=== PATIENT | female | born 1940 | race Caucasian/White ===

== ENCOUNTER 2020-11-05 09:59 | Inpatient (IN) ==
--- NOTE | 2020-10-17 12:48 | PAT Medication Instructions ---
Medication Instructions Date of Service October 17, 2020 Home Medications calcium carbonate-vitamin D3 600 mg (1,500 mg)-400 unit capsule (Calcium 600 with Vitamin D3) 1 cap PO BID carteolol 1 % eye drops 1 drops OPHTHALMIC (EYE) Q12H levothyroxine 50 mcg capsule 50 mcg PO QAM losartan 50 mg tablet 50 mg PO QAM prednisolone acetate 1 % eye drops,suspension 1 drops OP DAILY turmeric root extract 500 mg capsule 1,000 mg PO QAM acetaminophen 650 mg tablet,extended release 1,300 mg PO Q12H amlodipine 2.5 mg tablet 2.5 mg PO QAM carvedilol 6.25 mg tablet 6.25 mg PO BID triamcinolone acetonide 0.025 % topical ointment 1 applic TOPICAL DAILY STOP taking 2 weeks before surgery (or as soon as possible if surgery is within 2 weeks) turmeric root extract 500 mg capsule 1,000 mg PO QAM STOP taking 24 hours before surgery triamcinolone acetonide 0.025 % topical ointment 1 applic TOPICAL DAILY DO NOT take the morning of surgery calcium carbonate-vitamin D3 600 mg (1,500 mg)-400 unit capsule (Calcium 600 with Vitamin D3) 1 cap PO BID losartan 50 mg tablet 50 mg PO QAM Take morning of surgery With a small sip of water, OTHERWISE NOTHING TO EAT OR DRINK AFTER MIDNIGHT: carteolol 1 % eye drops 1 drops OPHTHALMIC (EYE) Q12H levothyroxine 50 mcg capsule 50 mcg PO QAM prednisolone acetate 1 % eye drops,suspension 1 drops OP DAILY acetaminophen 650 mg tablet,extended release 1,300 mg PO Q12H (okay to take up to 4 hours prior to surgery if needed) amlodipine 2.5 mg tablet 2.5 mg PO QAM carvedilol 6.25 mg tablet 6.25 mg PO BID Take evening before surgery calcium carbonate-vitamin D3 600 mg (1,500 mg)-400 unit capsule (Calcium 600 with Vitamin D3) 1 cap PO BID carteolol 1 % eye drops 1 drops OPHTHALMIC (EYE) Q12H acetaminophen 650 mg tablet,extended release 1,300 mg PO Q12H carvedilol 6.25 mg tablet 6.25 mg PO BID Other Notes If you have any questions please call us at [phone] or [phone] or [phone] or [phone]
--- NOTE | 2020-10-22 11:22 | Anesthesiology Consultation ---
Date of Service October 22, 2020 Assessment & Plan (1) Encounter for pre-operative examination: COVID screening: Per assessment on 10/22: Travel screen negative, no known COVID- 19 positive contacts or current COVID-19 related symptoms. Patient vaccinated. Surgeon arranging preop COVID testing. Awaiting results. Chart Review Chart Review: Acceptable Risk for Surgery and Patient seen in Pre Admission Testing Teaching & Discussion Pre-Anesthesia Teaching/Discussion Notes: Instructed NPO after midnight before surgery,except medications with 15 cc of water. Medication instructions provided according to the PAT guidelines. History Surgery Operation Date: 11/05/20 10:05 Proposed Procedures p L4-L5 Decompression Fusion, Spinal Cord Monitoring - Tonny Marquis DO Height/Weight Height: 4 ft 11 in Weight: 55.4 kg Allergies Allergy/AdvReac Type Severity Reaction Status Date / Time acetaminophen [From Vicodin] AdvReac Headache Verified 10/15/20 09:04 hydrocodone [From Vicodin] AdvReac Headache Verified 10/15/20 09:04 naproxen [From Naprelan] AdvReac Abdominal Verified 10/15/20 09:04 Pain prednisolone AdvReac Dizziness, Verified 10/19/20 16:18 itching raloxifene [From Evista] AdvReac Muscle Verified 10/19/20 16:18 cramping Medications Home Medications Medication Instructions Recorded Confirmed Last Taken calcium carbonate-vitamin D3 600 1 cap PO BID cap 01/26/18 10/15/20 Unknown mg (1,500 mg)-400 unit capsule (Calcium 600 with Vitamin D3) carteolol 1 % eye drops 1 drops OPHTHALMIC (EYE) Q12H 01/26/18 10/15/20 Unknown levothyroxine 50 mcg capsule 50 mcg PO QAM 01/26/18 10/15/20 Unknown losartan 50 mg tablet 50 mg PO QAM 01/26/18 10/15/20 Unknown prednisolone acetate 1 % eye 1 drops OP DAILY ml 01/26/18 10/15/20 Unknown drops,suspension turmeric root extract 500 mg 1,000 mg PO QAM 01/26/18 10/15/20 Unknown capsule acetaminophen 650 mg 1,300 mg PO Q12H 10/15/20 10/15/20 Unknown tablet,extended release amlodipine 2.5 mg tablet 2.5 mg PO QAM 10/15/20 10/15/20 Unknown carvedilol 6.25 mg tablet 6.25 mg PO BID 10/15/20 10/15/20 Unknown triamcinolone acetonide 0.025 % 1 applic TOPICAL DAILY 10/15/20 10/15/20 Unknown topical ointment Past Medical History Medical History Chronic neck pain Glaucoma Hearing deficit B/L REYES History of COVID-19 Dx 01/2020 > fatigue, headache > resolved HTN (hypertension), benign Hypothyroid Osteoarthritis Osteopenia Spinal stenosis Exercise / Class Metabolic Activity II 4-5 Yardwork/Stairs/Walk up hill (one FS (no CP, no SOB)) Past Family History Family History Father HTN (hypertension), benign Mother Bladder cancer Past Surgical History Surgical History H/O hemorrhoidectomy History of appendectomy History of bunionectomy History of colonoscopy History of esophagogastroduodenoscopy (EGD) Post corneal transplant R/L Past Anesthesia History No Hx of Anesthesia Complications and No Family Hx of Anesthesia Complications History of PONV No Hx of PONV and Hx of Motion Sickness (situational (car)) Social History Smoking Status: Never smoker Do You Dip or Chew Tobacco: No Hx Alcohol Use: Yes Alcohol type: wine alcohol intake frequency: holidays/special occasions only Hx Substance Use: No substance use type: does not use Review of Systems Patient denies chest pain, shortness of breath, dyspnea on exertion, fever, chills, cough, wheezing, palpitations. Physical Exam Vital Signs VITALS BP 162/71 (pt anxious, systolic BP typically in the 120s per pt) P 64 TEMP WNL SP02 100%RA RESP 16 PHYSICAL Full cervical extension range of motion (chronic neck issues, occasional pain). Full TMJ range of motion. TMD 3 finger breaths Mallampati Score 3 Dentition: several missing teeth, implant post (right lower, left upper molars)- plan for implant after surgery Lungs: clear throughout to auscultation Cardiac: regular rate and rhythm, no murmurs noted Spine: normal Carotid arteries: negative bruit Extremities: no edema Lab Results Anesthesia Preop Results Results Anesthesia Widget: WBC 4.30 K/uL (4.8-10.8) L 10/22/20 Hgb 12.8 g/dL (12.0-16.0) 10/22/20 Hct 38.5 % (37-47) 10/22/20 Plt 185 K/uL (130-400) 10/22/20 Na 138 mmol/L (136-145) 10/22/20 K 4.1 mmol/L (3.5-5.1) 10/22/20 Cl 105 mmol/L (98-107) 10/22/20 CO2 28 mmol/L (21-32) 10/22/20 BUN 19 mg/dl (7-18) H 10/22/20 Creat 0.60 mg/dl (0.6-1.2) 10/22/20 Glucose Level 80 mg/dl (70-99) 10/22/20 PT 9.9 Seconds (9.0-12.0) 10/22/20 PTT 24.8 Seconds (21.0-31.0) 10/22/20 INR 1.0 (0.9-1.1) 10/22/20 Urine Color Yellow 10/22/20 Urine Appearance Clear (Clear) 10/22/20 Urine pH 7.0 (4.5-7.5) 10/22/20 Urine Specific [place] 1.006 (1.000-1.030) 10/22/20 Urine Protein Negative (Negative) 10/22/20 Urine Glucose (UA) Negative (Negative) 10/22/20 Urine Ketones Negative (Negative) 10/22/20 Urine Blood Negative (Negative) 10/22/20 Urine Nitrite Negative (Negative) 10/22/20 Urine Bilirubin Negative (Negative) 10/22/20 Urine Urobilinogen Negative (Negative) 10/22/20 Urine Leukocyte Esterase Negative (Negative) 10/22/20 Blood Type O Positive 10/22/20 Antibody Screen NEGATIVE 10/22/20 Testing Electrocardiogram Date: 10/22/20 SR with first degree AVB at 61bpm. Otherwise normal ECG. Chest X-Ray Date: 10/22/20 No acute process. Old mild superior endplate compression deformity at T12.
[~2020-11-05 09:59] MED LIST: ACETAMINOPHEN 500 MG TAB PO SCH; CeleBREX 200 MG CAP PO SCH; GABAPENTIN 300 MG CAP PO SCH; LR 15ML/HR IV SCH; ceFAZolin 1000MG 1,000 MG/7.5 ML SYR IV SCH
[2020-11-05] MEDS ORDERED: SODIUM CHLORIDE 0.9% INJ 10 ML VIAL ONE ×2 (10:10)
[2020-11-05] MEDS ORDERED: ATROPINE SULFATE 0.1 MG/ML 10ML SYR IV PRN (10:42)
[2020-11-05] MEDS ORDERED: PHENYLEPHRINE 100MCG/ML 5ML SYR IV PRN (10:42)
[2020-11-05] MEDS ORDERED: fentaNYL citrate 100 MCG/2 ML VIAL IV PRN (10:42)
[2020-11-05] MEDS ORDERED: ONDANSETRON INJ 2 MG/ML 2 ML VIAL IV PRN ×2 (10:42→15:14)
[2020-11-05] MEDS ORDERED: ePHEDrine sulfate 50 MG/ML AMP IV PRN (10:42)
[2020-11-05] MEDS ORDERED: MEPERIDINE HCL 25 MG/ML CARP/VIAL IV PRN (10:42)
[2020-11-05] MEDS ORDERED: DEXAMETHASONE SOD INJ 4 MG/ML VIAL ONE (11:42)
[2020-11-05] MEDS ORDERED: NEOSTIGMINE METHYLSULFATE 1 MG/ML 10ML VIAL ONE ×2 (11:42→13:57)
[2020-11-05] MEDS ORDERED: PROPOFOL IV EMULSION 10 MG/ML 20 ML VIAL IV ONE (11:42)
[2020-11-05] MEDS ORDERED: ONDANSETRON INJ 2 MG/ML 2 ML VIAL ONE ×2 (11:42→13:58)
[2020-11-05] MEDS ORDERED: LIDOCAINE 2% 2 ML VIAL/AMP(20MG/ML) INFIL ONE (11:42)
[2020-11-05] MEDS ORDERED: GLYCOPYRROLATE 0.2 MG/ML VIAL ONE (11:42)
[2020-11-05] MEDS ORDERED: fentaNYL citrate 100 MCG/2 ML VIAL ONE (11:42)
[2020-11-05] MEDS ORDERED: ROCURONIUM BROMIDE 10 MG/ML 5 ML VIAL IV ONE (11:43)
--- NOTE | 2020-11-05 11:59 | History & Physical Bridge Note ---
Date of Service November 05, 2020 History & Physical Bridge Note I have examined the patient, reviewed the History & Physical and in the interval since the performance of the History & Physical I have noted the following changes of clinical significance: no changes noted
--- NOTE | 2020-11-05 12:00 | History & Physical Report ---
Date of Service November 05, 2020 Assessment & Plan (1) Neurogenic claudication due to lumbar spinal stenosis: Plan: L4-L5 decompression fusion History of Present Illness Chief Complaint: Back and leg pain Primary Care Provider: Nick Sharma DO This is an 80-year-old female who presents with chronic persistent back and leg pain. After failing course of nonoperative care she is here for surgical invention. Allergies Allergy/AdvReac Type Severity Reaction Status Date / Time hydrocodone [From Vicodin] AdvReac Headache Verified 11/05/20 10:25 naproxen [From Naprelan] AdvReac Abdominal Verified 11/05/20 10:25 Pain prednisolone AdvReac Dizziness, Verified 11/05/20 10:25 itching raloxifene [From Evista] AdvReac Muscle Verified 11/05/20 10:25 cramping Home Medications Medication Instructions Recorded Confirmed Type calcium carbonate-vitamin D3 600 1 cap PO BID cap 01/26/18 11/05/20 History mg (1,500 mg)-400 unit capsule (Calcium 600 with Vitamin D3) carteolol 1 % eye drops 1 drops OPHTHALMIC (EYE) Q12H 01/26/18 11/05/20 History levothyroxine 50 mcg capsule 50 mcg PO QAM 01/26/18 11/05/20 History losartan 50 mg tablet 50 mg PO QAM 01/26/18 11/05/20 History prednisolone acetate 1 % eye 1 drops OP DAILY ml 01/26/18 11/05/20 History drops,suspension turmeric root extract 500 mg 1,000 mg PO QAM 01/26/18 11/05/20 History capsule acetaminophen 650 mg 1,300 mg PO Q12H 10/15/20 11/05/20 History tablet,extended release amlodipine 2.5 mg tablet 2.5 mg PO QAM 10/15/20 11/05/20 History carvedilol 6.25 mg tablet 6.25 mg PO BID 10/15/20 11/05/20 History triamcinolone acetonide 0.025 % 1 applic TOPICAL DAILY 10/15/20 11/05/20 History topical ointment Past Med/Surg History Medical History (Updated 11/05/20 @ 12:00 by Tonny Marquis DO) Chronic neck pain Glaucoma Hearing deficit B/L REYES History of COVID-19 Dx 01/2020 > fatigue, headache > resolved Hypertension Hypothyroid Osteoarthritis Osteopenia Spinal stenosis Surgical History H/O hemorrhoidectomy History of appendectomy History of bunionectomy History of colonoscopy History of esophagogastroduodenoscopy (EGD) Post corneal transplant R/L Family History Father HTN (hypertension), benign Mother Bladder cancer Social History Smoking Status: Never smoker Second Hand Exposure: No; Do You Dip or Chew Tobacco: No; Hx Alcohol Use: No Hx Substance Use: No Preferred Language: Belarusian Communication Ability: Effective Visual Impairment: No Limitations Hearing Ability: Normal Swimming Pool Salesperson Required: No Beliefs That Will Affect Care: None marital status: Current Living Situation: Alone Feels Safe at Home: Yes Safety Concerns: Feels Safe At This Time Assistive Devices: Glasses, Hearing Aid - Left and Hearing Aid - Right Physical Exam Physical Exam: Patient is alert and oriented Heart regular in rhythm Lungs clear to auscultation Results & Data ([facility]) Vital Signs (Past 12 Hours) Vital Signs Temp Pulse Resp BP Pulse Ox 11/05/20 10:57 36.8 C 65 18 183/95 H 100
[2020-11-05] MEDS ORDERED: BUPIVACAINE 0.5 % 5 MG/1 ML MPF 30ML VIAL ONE (12:15)
[2020-11-05] MEDS ORDERED: EPINEPHrine INJ 1 MG/ML AMP ONE (12:15)
[2020-11-05] MEDS ORDERED: FLOSEAL HEMOSTATIC MATRIX 10ML TOP ONE (13:17)
[2020-11-05] MEDS ORDERED: PHENYLEPHRINE HCL 10 MG/ML VIAL ONE (13:19)
[2020-11-05] MEDS ORDERED: ePHEDrine sulfate 50 MG/ML AMP ONE (13:19)
[2020-11-05] MEDS ORDERED: SUGAMMADEX SODIUM 200 MG/2 ML VIAL IV ONE (13:57)
--- NOTE | 2020-11-05 14:05 | Operative Report ---
Post Operative Report Pre & Post Diagnosis Operation Date: 11/05/20 12:05 Pre-Op Diagnosis: Spondylolisthesis, [place] Post-Op Diagnosis: Spondylolisthesis, [place] I identified the patient and participated in the time-out.: Yes Procedure Operation Date: 11/05/20 12:05 Actual Procedures #1 lumbar decompression with bilateral medial facetectomies and foraminotomies L3-L4 L4-5. #2 posterior spinal fusion L4-5. #3 placement posterior instrumentation L4-5 #4 interbody fusion L4-5. #5 placement peek cage 9 x 22 mm at L4-5. #6 placement locally harvested morselized autograft in the posterior gutters. #7 placement for starting sponge and master graft posterior gutters and I factor interbody space. Surgeon Tonny Marquis, Die Keeper Leonor Santiago Estimated Blood Loss 100 Findings Consistent with Post-Op Diagnosis Specimens None Indications This is an 80-year-old female the presents with above-mentioned diagnosis after failed extensive course of nonoperative care is here for surgical invention. Description of Procedure Patient was met with identified informed consent obtained. Patient was then taken to the operative suite underwent a patient placed in a prone position injectable top Nikita frame. All bony prominences well-padded eyes inspected to ensure no external pressure placed upon them. At this point the lumbar spine was prepped and draped in a sterile fashion. Sharp dissection with the assistance pericardial form down to and exposing the lamina and transverse processes of L4-L5. From caudal to cephalad fashion complete laminectomy L4 partial laminectomy of L3 was performed including bilateral medial facetectomies and foraminotomies addressing severe spinal stenosis. Pedicle screws were then placed in L4-5 bilateral with assistance of fluoroscopy the proper sized pushpa placed. By way the transforaminal portion left complete discectomy of L4-L5 was performed endplates curetted to subcortically bone and a 9 x 22 mm peek cage filled with I factor tapped in position. Rods and locked in place bilaterally. The transverse processes of L4-L5 burred to subcortical bleeding bone. Infuse collagen sponge master graft local autograft was placed in the posterior gutters. 15 round JUDY drain inserted. The incision was then closed with 1 Vicryl fascia 2-0 Vicryl subcutaneously and 4 Monocryl for final skin closure. Steri-Strip sterile dressings placed. Patient will continue PACU stable condition. Please note spinal cord monitoring was utilized at the procedure no changes noted. Lastly Leonor Santiago was present at the entire surgery and while the patient positioning complex portions of the surgery and final skin closure. I attest to the content of the Intraoperative Record and any orders documented therein. Any exceptions are noted below.
[2020-11-05] MEDS: LABETALOL HCL IV 5 MG/ML 20ML IV PRN ×2 (14:20→14:35)
--- NOTE | 2020-11-05 14:36 | Fluoroscopy Report ---
INTRAOPERATIVE RADIOGRAPHS CLINICAL HISTORY: L4-L5 spinal fusion. Fluoroscopy time: 13 seconds. FINDINGS: 2 spot fluoroscopic views of the lumbar spine are presented. There has been discectomy at L 4-L5 with laminectomy and posterior fusion at this level. Interpedicular screws are in place. The ort hopedic hardware appears intact. IMPRESSION: Intraoperative images from lumbar spinal fusion surgery as above. Electronically signed by: Ed Clemons M.D. 11/05/2020 2:35 PM
[2020-11-05] MEDS ORDERED: hydrOXYzine HCl 25 MG TAB PO PRN (15:14)
[2020-11-05] MEDS ORDERED: METOCLOPRAMIDE HCL INJ 5 MG/ML 2 ML VIAL IV PRN (15:14)
[2020-11-05] MEDS ORDERED: bisacodyL 10 MG SUPP PR PRN (15:14)
[2020-11-05] MEDS ORDERED: FAMOTIDINE 20 MG TAB PO PRN (15:14)
[2020-11-05] MEDS ORDERED: DO NOT ADMINISTER FLU VACCINE PRN (15:14)
[2020-11-05] MEDS ORDERED: LORazepam 0.5 MG/1 ML VIAL IV PRN (15:14)
[2020-11-05] MEDS ORDERED: HYDROmorphone INJ 0.5 MG/0.5 ML SYR IV PRN (15:14)
[2020-11-05] MEDS ORDERED: MAGNESIUM HYDROXIDE SUSP 30 ML UDC PO PRN (15:14)
[2020-11-05] MEDS ORDERED: LORazepam 0.5 MG TAB PO PRN (15:14)
[2020-11-05] MEDS ORDERED: DO NOT ADMINISTER PNEUMOCOCCAL VACCINE PRN (15:14)
[2020-11-05] MEDS ORDERED: NALOXONE HCL 0.4 MG/1 ML VIAL/CARP IV PRN (15:14)
[2020-11-05] MEDS ORDERED: oxyCODONE HCL IR 5 MG TAB (IMMEDIATE RELEASE) PO PRN (15:14)
[2020-11-05] MEDS ORDERED: ALUMINUM/MAGNESIUM SUSP 30 ML UDC PO PRN (15:14)
[2020-11-05] MEDS ORDERED: diphenhydrAMINE Capsule 25 MG CAP PO PRN (15:14)
[2020-11-05] MEDS ORDERED: SOD PHOSPHATE/SOD BIPHOSPHATE ENEMA 132 ML BTL PR PRN (15:14)
[2020-11-05] MEDS ORDERED: ACETAMINOPHEN 1,000 MG/100 ML VIAL IV PRN (15:14)
[2020-11-05] MEDS ORDERED: HYDROmorphone INJ 1 MG/ML SYRINGE IV PRN (15:14)
[2020-11-05] MEDS ORDERED: ONDANSETRON 4 MG OD TAB PO PRN (15:14)
[2020-11-05] MEDS ORDERED: PROMETHAZINE HCL 12.5 MG in SODIUM CHLORIDE 0.9% 50 ML IV PRN (15:14)
--- NOTE | 2020-11-05 15:22 | Anesthesiology Progress Note ---
Date of Service November 05, 2020 Anesthesia Post Procedure Vital Signs Vital Signs: Temp Pulse Pulse Resp BP Pulse Ox 11/05/20 14:55 61 14 162/69 H 94 11/05/20 14:40 36.8 C 61 13 155/73 H 96 11/05/20 14:30 60 12 160/71 H 99 11/05/20 14:20 70 13 178/77 H 99 11/05/20 14:14 36.9 C 70 12 183/73 H 99 11/05/20 10:57 36.8 C 65 18 183/95 H 100 Pain Intensity Back: Pain Intensity: 1 Transfer of Care Handoff Completed per policy Notes Mental Status: alert / awake / arousable Patient Amnestic to Procedure: Yes Nausea / Vomiting: adequately controlled Pain: adequately controlled Airway Patency, RR, SpO2: stable & adequate BP & HR: stable & adequate Hydration State: stable & adequate Anesthetic Complications: no major complications apparent and Pt Satisfied with anesthetic care Notes: The patient was awake and comfortable.
--- NOTE | 2020-11-05 16:31 | Hospitalist Consultation ---
Date of Consultation November 05, 2020 Assessment & Plan (1) Neurogenic claudication due to lumbar spinal stenosis: Patient underwent L4-[address] Marquis in November 05 (2) Hypertension: Patient typically taking amlodipine 2.5 Coreg 6.25 twice daily losartan 50-day and Dyazide daily. All are fairly low doses of these medications.. We will hold diuretic dose at this time in the perioperative period following her blood pressure carefully (3) Hypothyroid: We have not tested her thyroid profile in our system. We will continue her Synthroid at 50 mcg a day checking a TSH in the morning (4) Glaucoma: Will remain on her prednisolone and carteolol eyedrops History of Present Illness Attending Physician: Tonny Marquis, History of Present Illness 80-year-old female with neurogenic claudication undergoing L4-5 decompression fusion on November [address] Jaylen Marquis Medical consultation for difficult to manage hypertension patient is typically on 4 antihypertensive medications. She also suffers hypothyroidism typically taking Synthroid as well as having a glaucoma/corneal transplant on prednisolone and carteolol eyedrops. Patient is seen postoperatively in the presence of her family without any problems or concerns Allergies Allergy/AdvReac Type Severity Reaction Status Date / Time hydrocodone [From Vicodin] AdvReac Headache Verified 11/05/20 10:25 naproxen [From Naprelan] AdvReac Abdominal Verified 11/05/20 10:25 Pain prednisolone AdvReac Dizziness, Verified 11/05/20 10:25 itching raloxifene [From Evista] AdvReac Muscle Verified 11/05/20 10:25 cramping Home Medications Medication Instructions Recorded Confirmed Type calcium carbonate-vitamin D3 600 1 cap PO BID cap 01/26/18 11/05/20 History mg (1,500 mg)-400 unit capsule (Calcium 600 with Vitamin D3) carteolol 1 % eye drops 1 drops OPHTHALMIC (EYE) Q12H 01/26/18 11/05/20 History levothyroxine 50 mcg capsule 50 mcg PO QAM 01/26/18 11/05/20 History losartan 50 mg tablet 50 mg PO QAM 01/26/18 11/05/20 History prednisolone acetate 1 % eye 1 drops OP DAILY ml 01/26/18 11/05/20 History drops,suspension turmeric root extract 500 mg 1,000 mg PO QAM 01/26/18 11/05/20 History capsule acetaminophen 650 mg 1,300 mg PO Q12H 10/15/20 11/05/20 History tablet,extended release amlodipine 2.5 mg tablet 2.5 mg PO QAM 10/15/20 11/05/20 History carvedilol 6.25 mg tablet 6.25 mg PO BID 10/15/20 11/05/20 History triamcinolone acetonide 0.025 % 1 applic TOPICAL DAILY 10/15/20 11/05/20 History topical ointment Patient History Medical History (Updated 11/05/20 @ 12:00 by Tonny Marquis DO) Chronic neck pain Glaucoma Hearing deficit B/L REYES History of COVID-19 Dx 01/2020 > fatigue, headache > resolved Hypertension Hypothyroid Osteoarthritis Osteopenia Spinal stenosis Surgical History H/O hemorrhoidectomy History of appendectomy History of bunionectomy History of colonoscopy History of esophagogastroduodenoscopy (EGD) Post corneal transplant R/L Family History Father HTN (hypertension), benign Mother Bladder cancer Social History Smoking Status: Never smoker Second Hand Exposure: No; Do You Dip or Chew Tobacco: No; Hx Alcohol Use: No Hx Substance Use: No Preferred Language: Kinyarwanda Communication Ability: Effective Visual Impairment: No Limitations Hearing Ability: Normal Therapy Manager Required: No Beliefs That Will Affect Care: None marital status: Current Living Situation: Alone Feels Safe at Home: Yes Safety Concerns: Feels Safe At This Time Assistive Devices: None Review of Systems Review of Systems: Mild distress and fatigue no headache, no visual changes no speech or swallowing issues no chest pain, pressure or palpitations no shortness of breath, cough or wheezes no abdominal pain, nausea or vomiting, diarrhea or constipation no dysuria, hematuria or frequency no focal joint pain or swelling no back pain, CVA tenderness or radicular pain no bruising, bleeding or rashes no focal signs of weakness or numbness or altered sensation no complaints of anxiety or depression.. Physical Exam Physical Exam: The patient appeared well nourished and normally developed. Vital signs as documented. Head exam is normocephalic atraumatic Neck is without JVD, thyromegaly, or carotid bruits. Lungs are clear to auscultation, no focal loss of breath sounds Cardiac exam, Rhythm is regular.. No murmurs, rubs or gallops. Abdominal exam reveals normal bowel sounds, soft non tender, no masses Extremities are nonedematous and both pedal pulses are present Neurologic exam is alert and oriented, no focal loss of strength or sensation in particular she has good distal sensation to her left lower leg Skin is without bruises or rashes Psychologically is without concerns for anxiety or depression Results & Data Results & Data ([facility]) Vital Signs (Past 12 Hours) Vital Signs Temp Pulse Pulse Resp BP Pulse Ox 11/05/20 16:03 64 16 164/70 H 97 11/05/20 15:32 62 16 170/71 H 98 11/05/20 14:55 61 14 162/69 H 94 11/05/20 14:40 98.2 F 61 13 155/73 H 96 11/05/20 14:30 60 12 160/71 H 99 11/05/20 14:20 70 13 178/77 H 99 11/05/20 14:14 98.4 F 70 12 183/73 H 99 11/05/20 10:57 98.2 F 65 18 183/95 H 100 PG Care Time/CCT Total # of Minutes Spent Total Time Spent with Patient: Total time spent is greater than 50% in coordination of care (as documented) at patient's floor/unit and/or counseling patient: Coding Level of Care Code 00801 Inpt Consult Level 3 Diagnoses Neurogenic claudication due to lumbar spinal stenosis M48.062 Hypertension I10 Hypothyroid E03.9 Glaucoma H40.9
[2020-11-05] MEDS: SODIUM CHLORIDE 0.9% 1000ML 1,000 ML IV SCH (16:33)
[2020-11-05] MEDS: traMADol HCL 50 MG TABLET PO PRN ×2 (17:16→21:10)
[2020-11-05] MEDS: ceFAZolin 1000MG 1,000 MG/7.5 ML SYR IV SCH (20:55)
[2020-11-05] MEDS: carvediloL 6.25 MG TAB PO SCH (20:56)
[2020-11-05] MEDS: CALCIUM 600MG + VIT D 400 IU TAB PO SCH (20:56)
[2020-11-05] MEDS: DOCUSATE SODIUM/SENNA 50/8.6MG TAB PO SCH ×2 (20:57→21:01)
[2020-11-05] MEDS: CARTEOLOL HCL 1% OP SOLN 5 ML BTL OP SCH (20:58)
[2020-11-06] MEDS: SODIUM CHLORIDE 0.9% 1000ML 1,000 ML IV SCH (03:08)
[2020-11-06 06:15] LABS: Hematocrit (blood only) 33.1 % (37-47); Hemoglobin 11.1 g/dL (12.0-16.0); Immature Granulocytes # (auto) 0.01 K/uL (0.00-0.02); Immature Granulocytes % (auto) 0.1 %; Lymphocytes # (auto) 0.93 K/uL (1.2-3.4); Lymphocytes % (auto) 10.4 %; Mean Corpuscular Hemoglobin 31.6 pg (25-34); Mean Corpuscular Hgb Conc 33.5 g/dL (32-36); Mean Corpuscular Volume 94.3 fL (80-100); Mean Platelet Volume 8.6 fL (7.4-10.4); Monocytes # (auto) 0.59 K/uL (0.11-0.59); Monocytes % (auto) 6.6 %; Neutrophils # (auto) 7.42 K/uL (1.4-6.5); Neutrophils % (auto) 82.9 %; Platelet Count 206 K/uL (130-400); RDW Coefficient of Variation 13.6 % (11.5-14.5); RDW Standard Deviation 46.6 fL (36.4-46.3); Red Blood Count 3.51 M/uL (4.2-5.4); White Blood Count 8.95 K/uL (4.8-10.8)
[2020-11-06] MEDS: LEVOTHYROXINE SODIUM 50 MCG TABLET PO SCH (06:15)
[2020-11-06] MEDS: ceFAZolin 1000MG 1,000 MG/7.5 ML SYR IV SCH (06:17)
[2020-11-06] MEDS: POLYETHYLENE (MIRALAX) 17 GM PACK PO SCH ×4 (06:23→23:47)
[2020-11-06 06:42] LABS: BUN Creatinine Ratio 25.2 (10-20); Calcium 8.5 mg/dl (8.5-10.1); Creatinine Clr Calc Pharmacy 65.8 ml/min; Est GFR (African American) 104.5 ml/min; Est GFR (Non-African American) 90.1 ml/min; Potassium 4.4 mmol/L (3.5-5.1)
--- NOTE | 2020-11-06 08:27 | Orthopedic Progress Note ---
Date of Service November 06, 2020 Assessment & Plan (1) Neurogenic claudication due to lumbar spinal stenosis: Plan: At this time initiate physical therapy monitor JUDY output hopefully she is a candidate for rehab in the next day or so. Admission and Anticipated Discharge Date Admission Date: November 05, 2020 Subjective Patient's back pain is controlled leg symptoms markedly improved Physical Exam Physical Exam: Patient is good strength testing. Appears comfortable. Results & Data ([facility]) Vital Signs (Past 12 Hours) Vital Signs Temp Pulse Resp BP BP Pulse Ox 11/06/20 07:44 36.5 C 73 16 121/55 L 98 11/06/20 02:54 36.7 C 70 16 99/58 L 97 11/05/20 23:07 36.5 C 74 16 114/63 95
--- NOTE | 2020-11-06 08:36 | Hospitalist Progress Note ---
Date of Service November 06, 2020 Assessment & Plan (1) Neurogenic claudication due to lumbar spinal stenosis: Plan: Patient underwent L4-[address] Maruqis in November 05 (2) Hypertension: Plan: Patient typically taking amlodipine 2.5 Coreg 6.25 twice daily losartan 50-day and Dyazide daily. All are fairly low doses of these medications.. We will hold diuretic (3) Hypothyroid: Plan: We have not tested her thyroid profile in our system. We will continue her Synthroid at 50 mcg a day (4) Glaucoma: Plan: Will remain on her prednisolone and carteolol eyedrops (5) Hyponatremia: Plan: maybe siadh from pain medications, if trends down will fluid restrict Admission and Anticipated Discharge Date Admission Date: November 05, 2020 Subjective Patient has no complaints or problems with going forward to rehab and having very little pain Review of Systems Review of Systems: Mild distress and fatigue no headache, no visual changes no speech or swallowing issues no chest pain, pressure or palpitations no shortness of breath, cough or wheezes no abdominal pain, nausea or vomiting, diarrhea or constipation no dysuria, hematuria or frequency no focal joint pain or swelling no back pain, CVA tenderness or radicular pain no bruising, bleeding or rashes no focal signs of weakness or numbness or altered sensation no complaints of anxiety or depression.. Physical Exam Physical Exam: The patient appeared well nourished and normally developed. Vital signs as documented. Head exam is normocephalic atraumatic Neck is without JVD, thyromegaly, or carotid bruits. Lungs are clear to auscultation, no focal loss of breath sounds Cardiac exam, Rhythm is regular.. No murmurs, rubs or gallops. Abdominal exam reveals normal bowel sounds, soft non tender, no masses Extremities are nonedematous and both pedal pulses are present Neurologic exam is alert and oriented, no focal loss of strength or sensation in particular she has good distal sensation to her left lower leg Skin is without bruises or rashes Psychologically is without concerns for anxiety or depression Results & Data Results & Data ([facility]) Vital Signs (Past 12 Hours) Vital Signs Temp Pulse Resp BP BP Pulse Ox 11/06/20 07:44 97.7 F 73 16 121/55 L 98 11/06/20 02:54 98.1 F 70 16 99/58 L 97 11/05/20 23:07 97.7 F 74 16 114/63 95 PG Care Time/CCT Total # of Minutes Spent Total Time Spent with Patient: Total time spent is greater than 50% in coordination of care (as documented) at patient's floor/unit and/or counseling patient: Coding Level of Care Code 47364 Subseq Hosp Care Lvl 2 Diagnoses Neurogenic claudication due to lumbar spinal stenosis M48.062 Hypertension I10 Hypothyroid E03.9 Glaucoma H40.9 Hyponatremia E87.1
[2020-11-06] MEDS: CARTEOLOL HCL 1% OP SOLN 5 ML BTL OP SCH ×2 (08:45→19:41)
[2020-11-06] MEDS: CALCIUM 600MG + VIT D 400 IU TAB PO SCH ×2 (08:45→19:42)
[2020-11-06] MEDS: carvediloL 6.25 MG TAB PO SCH ×2 (08:45→19:42)
[2020-11-06] MEDS: amLODIPine BESYLATE 5 MG TAB PO SCH (08:45)
[2020-11-06] MEDS: prednisoLONE acetate 1% OP SUSP 5 ML BTL OP SCH (08:45)
[2020-11-06] MEDS: LOSARTAN POTASSIUM 50 MG TAB PO SCH (08:45)
[2020-11-06] MEDS: TRIAMCINOLONE ACET 0.025% CR 15 GM TUBE EXT SCH (08:46)
[2020-11-06] MEDS: traMADol HCL 50 MG TABLET PO PRN ×4 (08:48→23:46)
[2020-11-06] MEDS: DOCUSATE SODIUM/SENNA 50/8.6MG TAB PO SCH (19:42)
[2020-11-07] MEDS: POLYETHYLENE (MIRALAX) 17 GM PACK PO SCH ×3 (05:37→17:54)
[2020-11-07] MEDS: LEVOTHYROXINE SODIUM 50 MCG TABLET PO SCH (05:37)
[2020-11-07] MEDS: ACETAMINOPHEN 500 MG TAB PO PRN ×2 (05:39→20:03)
[2020-11-07] MEDS: CARTEOLOL HCL 1% OP SOLN 5 ML BTL OP SCH ×2 (07:38→20:03)
[2020-11-07] MEDS: prednisoLONE acetate 1% OP SUSP 5 ML BTL OP SCH (07:38)
[2020-11-07] MEDS: LOSARTAN POTASSIUM 50 MG TAB PO SCH (07:39)
[2020-11-07] MEDS: amLODIPine BESYLATE 5 MG TAB PO SCH (07:39)
[2020-11-07] MEDS: TRIAMCINOLONE ACET 0.025% CR 15 GM TUBE EXT SCH (07:39)
[2020-11-07] MEDS: CALCIUM 600MG + VIT D 400 IU TAB PO SCH ×2 (07:39→20:02)
[2020-11-07] MEDS: carvediloL 6.25 MG TAB PO SCH ×2 (07:39→20:03)
--- NOTE | 2020-11-07 09:53 | Orthopedic Progress Note ---
Date of Service November 07, 2020 Assessment & Plan (1) Neurogenic claudication due to lumbar spinal stenosis: Plan: This time concern the oxycodone may be a bit strong for her. We will discontinue it for now. We will give her a small dose of Decadron to help with inflammation and continue to encourage PT OT as tolerated. Hoping for rehab placement soon as possible. Admission and Anticipated Discharge Date Admission Date: November 05, 2020 Subjective Back pain is more severe today but tolerable. Leg symptoms improved. Physical Exam Physical Exam: Patient has good strength testing. She sitting the chair at the bedside. Results & Data ([facility]) Vital Signs (Past 12 Hours) Vital Signs Temp Pulse Resp BP BP Pulse Ox 11/07/20 06:16 36.9 C 84 20 111/56 L 96 11/06/20 23:48 36.9 C 85 16 108/63 95
[2020-11-07] MEDS ORDERED: dexAMETHasone 6 MG in SYRINGE 0 ML IV ONE (10:00)
[2020-11-07] MEDS: traMADol HCL 50 MG TABLET PO PRN (15:48)
[2020-11-07] MEDS: DOCUSATE SODIUM/SENNA 50/8.6MG TAB PO SCH (20:03)
[2020-11-08] MEDS: POLYETHYLENE (MIRALAX) 17 GM PACK PO SCH ×2 (00:53→05:30)
[2020-11-08] MEDS: LEVOTHYROXINE SODIUM 50 MCG TABLET PO SCH (05:30)
[2020-11-08] MEDS: amLODIPine BESYLATE 5 MG TAB PO SCH (07:47)
[2020-11-08] MEDS: carvediloL 6.25 MG TAB PO SCH ×2 (07:48→20:03)
[2020-11-08] MEDS: CARTEOLOL HCL 1% OP SOLN 5 ML BTL OP SCH ×2 (07:48→20:03)
[2020-11-08] MEDS: LOSARTAN POTASSIUM 50 MG TAB PO SCH (07:48)
[2020-11-08] MEDS: CALCIUM 600MG + VIT D 400 IU TAB PO SCH ×2 (07:48→20:03)
[2020-11-08] MEDS: traMADol HCL 50 MG TABLET PO PRN ×2 (07:48→20:02)
[2020-11-08] MEDS: prednisoLONE acetate 1% OP SUSP 5 ML BTL OP SCH (07:48)
[2020-11-08] MEDS: TRIAMCINOLONE ACET 0.025% CR 15 GM TUBE EXT SCH (07:49)
--- NOTE | 2020-11-08 12:22 | Orthopedic Progress Note ---
Date of Service November 08, 2020 Assessment & Plan (1) Neurogenic claudication due to lumbar spinal stenosis: Plan: At this time we will continue physical therapy discontinue the drain today. Awaiting approval for rehab placement. She is a candidate to go at any time. Admission and Anticipated Discharge Date Admission Date: November 05, 2020 Subjective Patient's back pain is controlled leg symptoms markedly improved Physical Exam Physical Exam: Patient is in the chair at the bedside. Is good strength testing. Appears comfortable. Results & Data ([facility]) Vital Signs (Past 12 Hours) Vital Signs Temp Pulse Resp BP Pulse Ox 11/08/20 07:44 36.5 C 82 18 160/72 H 99
[2020-11-08] MEDS: ACETAMINOPHEN 500 MG TAB PO PRN (14:08)
[2020-11-08] MEDS: DOCUSATE SODIUM/SENNA 50/8.6MG TAB PO SCH (20:04)
[2020-11-09] MEDS: traMADol HCL 50 MG TABLET PO PRN (05:22)
[2020-11-09] MEDS: LEVOTHYROXINE SODIUM 50 MCG TABLET PO SCH (05:23)
[2020-11-09] MEDS: CARTEOLOL HCL 1% OP SOLN 5 ML BTL OP SCH (08:43)
[2020-11-09] MEDS: LOSARTAN POTASSIUM 50 MG TAB PO SCH (08:43)
[2020-11-09] MEDS: CALCIUM 600MG + VIT D 400 IU TAB PO SCH (08:43)
[2020-11-09] MEDS: carvediloL 6.25 MG TAB PO SCH (08:43)
[2020-11-09] MEDS: prednisoLONE acetate 1% OP SUSP 5 ML BTL OP SCH (08:43)
[2020-11-09] MEDS: amLODIPine BESYLATE 5 MG TAB PO SCH (08:44)
[2020-11-09] MEDS: TRIAMCINOLONE ACET 0.025% CR 15 GM TUBE EXT SCH (08:45)
--- NOTE | 2020-11-09 10:15 | Discharge Summary ---
Date of Service November 09, 2020 Admission HPI Per Admitting Provider This is an 80-year-old female who presents with chronic persistent back and leg pain. After failing course of nonoperative care she is here for surgical invention. Principal Diagnosis Lumbar spinal stenosis with neurogenic claudication Discharge Data Allergies Allergy/AdvReac Type Severity Reaction Status Date / Time hydrocodone [From Vicodin] AdvReac Headache Verified 11/05/20 10:25 naproxen [From Naprelan] AdvReac Abdominal Verified 11/05/20 10:25 Pain prednisolone AdvReac Dizziness, Verified 11/05/20 10:25 itching raloxifene [From Evista] AdvReac Muscle Verified 11/05/20 10:25 cramping Consultations 11/05/20 15:49 Consult Hospitalist Routine Procedures Performed Operation Date: 11/05/20 12:05 Actual Procedures p L4-L5 Decompression Fusion, Spinal Cord Monitoring(Not Applicable) - Tonny Marquis DO Ordered Studies 11/05/20 12:05 [place] lumbar spine 2-3V Routine Hospital Course (1) Neurogenic claudication due to lumbar spinal stenosis: Patient underwent lumbar decompression fusion cholecystectomy orthopedic for postoperative. Postop day 1 she was [address] ambulating [address] postop day #2 and 3 JUDY drain decreasing probably. Pain improving. Excellent strength testing. Substance discharge to rehab. Discharge orders instructions from the chart for further review. Total Time Total Time Spent Total Time Spent (In Minutes): 20 minutes Discharge Plan Discharge Items Patient Disposition: Transfer Inpatient Rehab Fac Reason For Visit: Spondylolisthesis, [place] Discharge Diagnosis: Lumbar spinal stenosis with spondylolisthesis and neurogenic claudication Activity: As commented below Non-emergency contact: Primary Care Provider Call non-emergency contact if: you have any medication questions Follow-up/Referrals: Nick Sharma DO [Primary Care Provider] - Diet: Regular Addtl Attending Provider Instructions: ACTIVITY RECOMMENDATIONS: SELF CARE INSTRUCTIONS AFTER THORACIC/LUMBAR FUSIONS 1. You may walk to your tolerance. It is good exercise for your legs and back. Expect some back and intermittent leg aches and pains. 2. You may perform "counter-top" level activities (make a sandwich, talat with a project, etc.). 3. No bending or lifting of more than 10 pounds or back twisting of any nature (roll like a log when turning in bed). 4. You may ride in a car for 20-30 minutes at a time. No driving until after your first visit with your doctor. 5. Frequent changes of position and restricting sitting to 30 minutes at a time will help limit the amount of back spasms and stiffness you may experience. 6. You may discontinue the use of ambulatory aids (cane, crutches, etc.) once your strength and confidence allow. 7. You may customer service engineer the shower and let water strike your incision when you arrive home at least once daily. Do not take a tub bath, sit in a hot tub or go into a swimming pool until after your first recheck in the office. SPECIAL CARE INSTRUCTIONS: VERY IMPORTANT TO READ AND REVIEW A. Your surgical incision has been closed with a cosmetic suture under the skin that will dissolve in about 6 weeks. In 14 days, you can use a pair of clean scissors and cut the suture that is left outside of the skin at the ends of your incision. 1. The small skin tapes can be removed 7 days after surgery if they have not fallen off by that point. 2. You may keep the wound open to air as much as possible to promote healing after post-op day number 5 unless told otherwise by your doctor. 3. If you think the wound looks like it is becoming infected (redness or worsening drainage) and/or you are experiencing fever, chill or worsening back pain and muscle spasms, contact the office so that we may evaluate you as soon as possible. B. Complications are uncommon, but please contact us if you have any signs or symptoms of: 1. wound infection (fever higher than 102.5 degrees F, redness, separation of wound, drainage, or increasing pain from the incision) 2. blood clots in legs (pain, swelling, redness and warmth in legs) 3. urinary tract infection (fever higher than 102.5 degrees F, burning upon urination or increased frequency of urination) 4. nerve problems (inability to walk on your toes or heels, numbness, loss of bowel or bladder control) 5. any other symptoms that concern you C. Please call the office at if you have any concerns or questions about your operation or recovery. D. No smoking! Smoking drastically decreases the chance of a solid fusion. E. Do not take any anti-inflammatory medications (Indocin, Advil, Motrin, Aspirin, Naprosyn, etc.) as these may inhibit the chance of a solid fusion. Tylenol is okay to take for pain. MANAGING PAIN AFTER SPINAL SURGERY 1. Narcotic medication is intended for short-term use and will be provided for surgical pain. Surgical pain usually lasts for a period of 4-6 weeks. Narcotic medication includes Percocet, Vicodin, Darvocet, Tylenol #3 or Lortab. 2. Longer-term pain is more appropriately treated with non-narcotic medication such as Tylenol ES. 3. Muscle spasm is not appropriately treated with narcotics. Muscle relaxers such as Soma, Flexeril or Skelaxin can be used along with Tylenol ES. 4. Remember that we all live with some "aches and pains". This is not unusual or uncommon after an injury or as we get older. a. Back pain is expected and may include muscle spasms for 4 to 6 weeks after surgery. The pain should gradually improve. If the pain worsens for no apparent reason, please contact the office. b. Intermittent leg pain may also be experienced and should not be concerned about unless it worsens for no apparent reason. If so, please contact the office. 5. We will provide appropriate medication within the normal guidelines of their prescribed use. We will also be very cautious and aware of potential abuse and extended duration of patients' medication needs. a. Pain medications are for your comfort and to assist with sleep and rest so that the tissue can heal. They are not provided in order to return to normal activity and should not be used through the day. To do so or worsening pain at night can result from ongoing tissue damage and development of tolerance to the prescribed medicine. 6. Please allow 2-3 days to process refills. Prescriptions will not be mailed but must be picked up at the office. FOLLOW UP VISIT: Keep your scheduled follow-up appointment. Any questions, please call the office at . Pending Studies at Discharge: No Stand-Alone Forms: [employer], Smoking Cessation Skilled Items Patient informed of condition?: Yes DNR: No Discharge Level of Care: Acute rehab Communicable Disease: No Discharge Prognosis: Improving Lines: None Urinary Catheter: No Medications and DC Order Prescriptions: New tramadol 50 mg tablet 50 mg PO Q6H PRN (Reason: pain, moderate) Qty: 30 RF: 0 Continued calcium carbonate-vitamin D3 [Calcium 600 with Vitamin D3] 600 mg(1,500mg) - 400 unit capsule 1 cap PO BID RF: 0 carteolol 1 % drops 1 drops ophthalmic (eye) Q12H RF: 0 levothyroxine 50 mcg capsule 50 mcg PO QAM RF: 0 losartan 50 mg tablet 50 mg PO QAM RF: 0 prednisolone acetate 1 % drops,suspension 1 drops OP DAILY RF: 0 turmeric root extract 500 mg capsule 1,000 mg PO QAM RF: 0 carvedilol 6.25 mg Tablet 6.25 mg PO BID RF: 0 amlodipine 2.5 mg Tablet 2.5 mg PO QAM RF: 0 acetaminophen 650 mg Tablet Extended Release 1,300 mg PO Q12H RF: 0 triamcinolone acetonide 0.025 % Ointment 1 applic TOPICAL DAILY RF: 0 Discharge Orders: Discharge Order (Routine); Ordered 11/09/20 Ordered By: Tonny Marquis Admission Data Admit Date/Time: 11/05/20 14:11 Attending Provider: Tonny Marquis Admit Provider: Tonny Marquis Primary Care Provider: Nick Sharma Other Providers: João Grissom ; [facility] Other Interventions: Discharge Summary Assessment (RN) Last Done: 11/09/20 08:50
== END 2020-11-09 10:18 | DRG 454 ==
LOC: ASU 09:59 → 3E 14:11